=== PATIENT | male | born 1960 | race Hispanic/Latino ===

== ENCOUNTER 2022-03-06 19:17 | Emergency (ER) | payer MEDICARE ==
[2022-03-06] MEDS ORDERED: SODIUM CHLORIDE 0.9% 1000 ML 1,000 ML IV ONE (20:28)
--- NOTE | 2022-03-06 20:50 | Emergency Department Report ---
- General Chief complaint: Weakness Stated complaint: EXTREME PAIN/WEAKNESS/DISORIATATED PUI?: No Time Seen by Provider: 03/06/22 19:49 Source: patient, family Mode of arrival: Ambulatory Limitations: No Limitations - History of Present Illness Initial comments: This patient is a 61yo M w/self reported hx of cancer, COPD (not on oxygen), DMII, HTN, HLD, and chronic urinary retention. pt reports he is visiting from [place] and is "a cancer patient" with self- reported history of prostate cancer with known metastatic disease per his report to his brain and right hip, currently not on chemo therapy or radiation (patient states "I told my oncologist that I did not want any of that anymore. They offered me hospice but I refused that. I am under pain contract." Presents for evaluation of generalized weakness and request for pain medication. Patient reports that he he is visiting his son here in [place] given that he "is fulfilling my bucket list in the last thing I wanted to do was see my son before I ." Patient states that he has been in [place] and ran out of his regular medications several days ago. He states he was due to return to [place] 3 days ago but was unable to. He was at the airport today attempting to get on a flight to return to [place] as a standby, but states he was unsuccessful. He reports having 2 alcoholic drinks as well as eating chicken wings while at the airport. He states "I feel like I am coming off of my meds and I really need them and this is why I do not feel good." Patient and family members report that the patient has not and is not disoriented or confused. Patient reports marijuana abuse, stating "I like to get high because it makes me feel good." Denies any methamphetamine heroin cocaine or any other illicit drug abuse. He reports smoking tobacco approximately 1 pack/day. He denies any falls or head trauma vision changes tingling or numbness in his arms or legs, no difficulty talking walking or word finding. No syncope or presyncopal symptoms. Patient reports his pain is "everywhere and it is my chronic pain and I need my pain medication." Pain currently 8 out of 10.. MD Complaint: generalized weakness Onset/Timin -: days(s) Location: generalized Severity: moderate Severity scale (0 -10): 0 Quality: other (Patient unable to qualify but does report generalized weakness with lack of energy stating "I feel dehydrated") Consistency: constant Improves with: medication, other (Patient is requesting his oxycodone pain medication) Worsens with: none Context: history of similar Associated Symptoms: denies other symptoms - Related Data Allergies Allergy/AdvReac Type Severity Reaction Status Date / Time No Known Allergies Allergy Verified 03/06/22 19:58 ED Review of Systems ROS: Stated complaint: EXTREME PAIN/WEAKNESS/DISORIATATED Other details as noted in HPI Comment: All other systems reviewed and negative Constitutional: no symptoms reported, see HPI, weakness. denies: chills, diaphoresis, fever, malaise Eyes: denies: eye pain, eye discharge, vision change ENT: denies: ear pain, throat pain, dental pain, hearing loss, epistaxis, congestion Respiratory: denies: no symptoms reported, cough, shortness of breath, SOB with exertion, SOB at rest, stridor, wheezing Cardiovascular: denies: as per HPI, chest pain, palpitations, dyspnea on exertion, orthopnea, edema, syncope, paroxysmal nocturnal dyspnea Endocrine: no symptoms reported Gastrointestinal: denies: abdominal pain, nausea, vomiting, diarrhea, constipation, hematemesis, melena, hematochezia Genitourinary: denies: urgency, dysuria, frequency, hematuria, discharge, testicular pain, testicular mass, other Musculoskeletal: denies: back pain, joint swelling, arthralgia, myalgia Skin: denies: rash, lesions, change in color, change in hair/nails, pruritus Neurological: weakness. denies: headache, numbness, paresthesias, confusion, abnormal gait, vertigo, other Psychiatric: denies: anxiety, depression, auditory hallucinations, visual hallucinations, homicidal thoughts, suicidal thoughts Hematological/Lymphatic: denies: easy bleeding, easy bruising, swollen glands ED Past Medical Hx - Past Medical History Previous Medical History?: Yes Hx Hypertension: Yes Hx CVA: No Hx Heart Attack/AMI: No Hx Congestive Heart Failure: No Hx Diabetes: Yes Hx Deep Vein Thrombosis: No Hx Pulmonary Embolism: No Hx GERD: No Hx Liver Disease: No Hx Renal Disease: No Hx of Cancer: Yes (pt reports prostate cancer w/mets ) Hx Sickle Cell Disease: No Hx Arthritis: No Hx Headaches / Migraines: No Hx Seizures: No Hx Kidney Stones: No Hx Psychiatric Treatment: No Hx Asthma: No - Family History Family history: no significant - Social History Smoking Status: Current Every Day Smoker Substance Use Type: Alcohol, Marijuana ED Physical Exam - General Limitations: No Limitations General appearance: alert, other (Older appearing than stated chronological age, cachectic, disheveled, chronically ill-appearing) - Head Head exam: Present: atraumatic, normocephalic, normal inspection - Eye Eye exam: Present: normal appearance, PERRL, EOMI. Absent: scleral icterus, conjunctival injection, nystagmus, periorbital swelling, periorbital tenderness Pupils: Present: normal accommodation. Absent: irregular, unequal, miosis, mydriatic - ENT ENT exam: Present: normal exam, normal orophraynx, mucous membranes dry, other. Absent: mucous membranes moist, TM's normal bilaterally, normal external ear exam - Neck Neck exam: Present: normal inspection, full ROM. Absent: tenderness, meningism us, lymphadenopathy, thyromegaly - Respiratory Respiratory exam: Present: normal lung sounds bilaterally. Absent: respiratory distress, wheezes, chest wall tenderness, accessory muscle use, decreased breath sounds - Cardiovascular Cardiovascular Exam: Present: regular rate, tachycardia. Absent: normal rhythm, bradycardia, irregular rhythm, normal heart sounds, systolic murmur, diastolic murmur, rubs, gallop, clicks, JVD, S3, S4, other - GI/Abdominal GI/Abdominal exam: Present: soft, normal bowel sounds. Absent: distended, tenderness, guarding, rebound, rigid, diminished bowel sounds, hyperactive bowel sounds, hypoactive bowel sounds, organomegaly, mass, bruit, pulsatile mass, hernia - Rectal Rectal exam: Present: deferred - exam: Present: normal inspection, other (pt has indwelling Crews catheter which she states was placed by the emergency department nurse prior to my arrival to the examination room) - Back Exam Back exam: Present: normal inspection, full ROM. Absent: tenderness, CVA tenderness (R), CVA tenderness (L), muscle spasm, paraspinal tenderness, vertebral tenderness, rash noted - Neurological Exam Neurological exam: Present: alert, oriented X3, CN II-XII intact, normal gait. Absent: abnormal gait, motor sensory deficit, reflexes normal - Psychiatric Psychiatric exam: Present: normal affect, depressed. Absent: anxious, flat affect, manic, homicidal ideation, suicidal ideation - Skin Skin exam: Present: warm, dry, intact, normal color. Absent: rash, cyanosis, diaphoretic, erythema, urticaria, vesicles, petechiae, pallor, abrasion, ecchymosis, other - Assessment Assessment Interval: Baseline - Level of Consciousness 1a. Level of Consciousness: alert/keenly responsive - LOC Questions 1b. LOC Questions: answers both correctly - LOC Command 1c. LOC Commands: performs tasks correctly - Best Gaze 2. Best Gaze: normal - Visual 3. Visual: no visual loss - Facial Palsy 4. Facial Palsy: normal symmetrical movement - Motor Arm 5a. Motor Arm Left: no drift 5b. Motor Arm Right: no drift - Motor Leg 6a. Motor Leg Left: no drift 6b. Motor Leg Right: no drift - Limb Ataxia 7. Limb Ataxia: absent - Sensory 8. Sensory: normal - Best Language 9. Best Language: no aphasia - Extinction and Inattention 11. Extinction/Inattention: no abnormality ED Course Vital Signs 03/06/22 03/06/22 03/06/22 19:50 20:00 20:16 Temperature Pulse Rate 111 H 106 H Respiratory 21 11 L Rate Blood Pressure 131/85 141/91 Blood Pressure [Right] O2 Sat by Pulse 98 96 97 Oximetry 03/06/22 03/06/22 03/06/22 20:30 20:46 21:00 Temperature Pulse Rate 100 H 106 H 100 H Respiratory 11 L 14 14 Rate Blood Pressure 131/87 143/100 154/102 Blood Pressure [Right] O2 Sat by Pulse 97 96 95 Oximetry 03/06/22 03/06/22 03/06/22 21:08 21:24 21:30 Temperature Pulse Rate 96 H 97 H Respiratory 15 19 15 Rate Blood Pressure 154/102 137/85 Blood Pressure [Right] O2 Sat by Pulse 95 95 98 Oximetry 03/06/22 03/06/22 03/06/22 21:46 22:00 22:33 Temperature Pulse Rate 98 H 99 H Respiratory 12 20 Rate Blood Pressure 140/75 156/124 160/105 Blood Pressure [Right] O2 Sat by Pulse 95 Oximetry 03/06/22 03/06/22 22:48 22:49 Temperature 98.0 F Pulse Rate 95 H Respiratory 15 15 Rate Blood Pressure Blood Pressure 154/102 [Right] O2 Sat by Pulse 100 100 Oximetry - Reevaluation(s) Reevaluation #1: 03/06/22 21:04 Pt is awake alert and oriented to person place time and situation, he is mentating well, is moving all extremities, patient repeatedly requesting to be given oxycodone 7.5 mg, no drooling no stridor no respiratory distress we will continue to monitor Reevaluation #2: 03/06/22 23:04 Patient observed ambulating in emergency department. He denies any symptoms. He is repeatedly requesting to be discharged at this time. He ambulates with normal steady gait. He has no pallor. His mentation is normal. Head no evidence of altered mental status or sensorium. ED Medical Decision Making - Lab Data Result diagrams: 03/06/22 21:12 03/06/22 21:12 - EKG Data EKG shows normal: sinus rhythm Rate: tachycardia - EKG Data When compared to previous EKG there are: previous EKG unavailable Interpretation: no acute changes - Radiology Data Radiology results: report reviewed See patient's electronic health record for documented impression and plan by reading radiologist - Medical Decision Making Patient is a 61-year-old male with multiple self-reported medical comorbidities who presents for evaluation of exacerbation of his chronic pain as well as request to receive pain medication, and finding complaints of generalized weakness. Vitals stable. Serum labs reviewed and revealed hypokalemia with potassium of 3.1. Urine drug screen obtained and demonstrates marijuana. Remainder of urine drug screen unremarkable. Remainder of serum labs are grossly unremarkable as well. Patient given dose of his reported home medications here including oxycodone 5.0 mg. Patient reassessed multiple times by me. He remained awake alert and oriented to person place time situation. His mentation was normal. He had no focal neurodeficits, no seizure-like activity, no altered mental status or altered sensorium. Additionally he denied any chest pain shortness of breath difficulty breathing abdominal pain or any other active or newly evolving symptoms. Patient's prescription monitoring history for controlled substances was reviewed in the [place] PDMP.Pt last had prescription of oxycodone 7.5mg/acetaminophen 3 25mg, filled on 02/14/2022, and at that time, 120 tablets were prescribed. This was prescribed by a provider in [place], [place]. Given that the patient has a documented history of chronic controlled opiate prescriptions having been prescribed by a provider in [place], and his urine drug screen today is negative for opiates, risks outweigh the benefits of prescribing the patient a refill of his controlled substances and therefore no narcotics will be provided at the time of discharge. This was discussed at length with the patient at his bedside. He verbalized understanding. Patient advised to follow-up with his primary care doctor within 1-2 business days for immediate reassessment. Management of hypokalemia and need for repeat serum potassium level were discussed at length with him during his evaluation. No further emergent work-up warranted at this time. Patient stable for dischar ge to home. Prior to discharge she was given strict verbal and written return precautions. The patient verbalized understanding and agreed to plan of care. Critical care attestation.: If time is entered above; I have spent that time in minutes in the direct care of this critically ill patient, excluding procedure time. ED Disposition Clinical Impression: Hypokalemia, Weakness Disposition: 01 HOME / SELF CARE / HOMELESS Is pt being admited?: No Condition: Stable Instructions: Fatigue, Hypokalemia, Potassium Content of Foods Additional Instructions: Please follow up with your primary care doctor as soon as possible. Your potassium level is mildly low and is 3.1 (normal is: 3.5-5.0). Eat foods rich in potassium and have your potassium level rechecked within one week. Return to the nearest emergency department as soon as possible if you develop worsening dizziness, vomiting, severe headaches, or if any other new worrisome symptoms develop. Referrals: DOROTHEA FOSTER MD [Primary Care Provider] - 3-5 Days
[2022-03-06 21:00] LABS: Bilirubin,Urine NEG (Negative); Blood,Urine MOD (Negative); Color,Urine Colorless (Yellow); Protein,Urine <15 mg/dL mg/dL (Negative); RBC,Urine < 1.0 /HPF (0.0-6.0); Urobilinogen,Urine < 2.0 mg/dL (<2.0)
[2022-03-06 21:03] LABS: WBC,Urine < 1.0 /HPF (0.0-6.0)
[2022-03-06 21:09] LABS: Amphetamine Screen,Urine Negative; Benzodiazepines Screen,Urine Negative; Cocaine Screen,Urine Negative; Methadone Screen,Urine Negative; Opiate Screen,Urine Negative
--- NOTE | 2022-03-06 21:10 | XRay Report ---
CHEST 1 VIEW 03/06/2022 8:44 PM INDICATION / CLINICAL INFORMATION: metastatic brain cancer, weakness. COMPARISON: None available. FINDINGS: SUPPORT DEVICES: None. HEART / MEDIASTINUM: No significant abnormality. LUNGS / PLEURA: No significant pulmonary or pleural abnormality. No pneumothorax. Increased lucencies in the lung apices suggesting emphysematous change. ADDITIONAL FINDINGS: No significant additional findings. IMPRESSION: 1. No acute findings. Signer Name: Ermias Oneil DO Signed: 03/06/2022 9:05 PM Workstation Name: [id number]
[2022-03-06 21:19] LABS: Basophils % (Auto) 0.2 % (0.0-1.8); Eosinophils # (Auto) 0.1 K/mm3 (0.0-0.4); Eosinophils % (Auto) 0.8 % (0.0-4.3); Hematocrit 43.5 % (35.5-45.6); Hemoglobin 14.1 gm/dl (11.8-15.2); Lymphocytes % (Auto) 31.6 % (13.4-35.0); Mean Corpuscular HGB Conc 32 % (32-34); Mean Corpuscular Volume 95 fl (84-94); Monocytes # (Auto) 0.9 K/mm3 (0.0-0.8); Monocytes % (Auto) 9.6 % (0.0-7.3); Platelet Count 314 K/mm3 (140-440); Red Cell Distribution Width 14.6 % (13.2-15.2)
[2022-03-06 21:22] LABS: Cannabinoid Screen,Urine Positive
[2022-03-06 21:34] LABS: Alanine Aminotransferase 13 units/L (7-56); Albumin 3.7 g/dL (3.9-5); BUN/Creatinine Ratio 20; Blood Urea Nitrogen 16 mg/dL (9-20); Calcium 8.8 mg/dL (8.4-10.2); Hemolysis Index 15
--- NOTE | 2022-03-06 21:40 | Cat Scan Report ---
CT HEAD WITHOUT CONTRAST INDICATION / CLINICAL INFORMATION: visiting from [place]; reports known mets to brain. Patient reports generalized weakness. TECHNIQUE: All CT scans at this location are performed using CT dose reduction for ALARA by means of automated e xposure control. COMPARISON: None available. FINDINGS: HEMORRHAGE: No evidence of intracranial hemorrhage or extra-axial fluid collection. EXTRA-AXIAL SPACES: Cortical sulci, sylvian fissures and basilar cisterns have an unremarkable appear ance. VENTRICULAR SYSTEM: The third and lateral ventricles are of normal size and configuration. CEREBRAL PARENCHYMA: No areas of abnormal brain parenchymal attenuation are identified. There is no i ndication of recent infarction. MIDLINE SHIFT OR HERNIATION: There is no mass effect. CEREBELLUM / BRAINSTEM: Brainstem and cerebellum have an unremarkable appearance. MIDLINE STRUCTURES:No abnormalities of the pituitary gland or pineal region are identified. INTRACRANIAL VESSELS: Calcified atherosclerotic plaque is seen along the course the cavernous segment s of both internal carotid arteries. ORBITS: visualized portions of the orbits have an unremarkable appearance. SOFT TISSUES of HEAD: No significant abnormality. CALVARIUM: Evaluation of bone windows reveals no abnormalities. PARANASAL SINUSES / MASTOID AIR CELLS: Complete opacification of the nasal cavity is noted bilaterall y. Possibility of sinonasal polyposis should be considered. Inflammatory changes are present in the m axillary sinuses, ethmoid air cells, frontal sinuses and sphenoid sinuses consistent with pansinusiti s. ADDITIONAL FINDINGS: None. IMPRESSION: 1. No significant intercranial abnormality on head CT without contrast. Patient reports history of me tastatic disease to brain. There is no evidence of metastatic disease to brain on this noncontrast he ad CT examination. If clinically warranted further evaluation with MRI brain without and with intrave nous contrast could be considered. 2. Opacification of the air passageways of the nasal cavity. This consider possible sinonasal polypos is. This is associated with pansinus inflammatory disease with complete opacification of ethmoid air cells and subtotal opacification of maxillary sinuses. Mucosal disease is also present in the frontal and sphenoid sinuses. Signer Name: Srikanth Knight MD Signed: 03/06/2022 9:36 PM Workstation Name: [id number]
[2022-03-06] MEDS ORDERED: POTASSIUM CHLORIDE ER 20 MEQ TAB PO ONE (22:09)
[2022-03-06] MEDS ORDERED: oxyCODONE /ACETAMINOPHEN 5-325MG TAB PO ONE (22:17)
[2022-03-06] MEDS ORDERED: hydroCHLOROthiazide 25 MG TAB PO ONE (22:22)
[2022-03-06] MEDS ORDERED: TAMSULOSIN 0.4 MG CAP PO ONE (22:23)
[2022-03-06 22:50] VITALS: BP 154/102
--- NOTE | 2022-03-07 11:38 | Electrocardiograph Report ---
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 No previous ECG available for comparison Electronically Signed On 03-07-2022 11:37:52 EDT by Alvaro Oropeza
== END 2022-03-06 23:42 | disposition home or self-care (01) ==
LOC: ED 19:17
DX: R53.1 Weakness (principal); R33.9 Retention of urine, unspecified; E87.6 Hypokalemia; E11.9 Type 2 diabetes mellitus without complications; I10 Essential (primary) hypertension; Z85.46 Personal history of malignant neoplasm of prostate; F17.210 Nicotine dependence, cigarettes, uncomplicated
CPT/HCPCS: 36415; 51702; 70450; 71045; 80053; 80307; 81001; 85025; 93005; 96360; 99285; J7030